=== PATIENT | female | born 1945 | race Caucasian/White ===

== ENCOUNTER → 2019-12-09 | Outpatient (CLI) | payer OTHER ==
[~2019-12-09] MED LIST: CALCIUM500 MG PO; CO Q-10 100 MG1 EACH PO; FLEXERIL PO; FLONASE 0.05%50 MCG NASAL; GARLIC1 EACH PO; LIPITOR40 MG PO; MECLIZINE HCL25 M1 PO; SUPER THERAVIT1 EACH PO; SYNTHROID50 MCG PO; XANAX1 MG PO; ZOLOFT100 MG PO
== END ==
LOC: SJCVC 14:35
PROVIDERS: ATTEND Internal Medicine
DX: R00.1 Bradycardia, unspecified (principal); I25.10 Atherosclerotic heart disease of native coronary artery without angina pectoris; E78.5 Hyperlipidemia, unspecified; E03.9 Hypothyroidism, unspecified; Z79.899 Other long term (current) drug therapy; Z82.49 Family history of ischemic heart disease and other diseases of the circulatory system; Z87.891 Personal history of nicotine dependence

== ENCOUNTER → 2019-12-17 | Outpatient (CLI) | payer OTHER | LOC: SJCVCIMAG 09:14 | PROVIDERS: ATTEND Internal Medicine | DX: I49.1 Atrial premature depolarization (principal); I49.3 Ventricular premature depolarization; I25.10 Atherosclerotic heart disease of native coronary artery without angina pectoris; E78.5 Hyperlipidemia, unspecified ==

== ENCOUNTER → 2019-12-19 | Outpatient (CLI) | payer OTHER | LOC: SJCVC 09:01 | PROVIDERS: ATTEND Internal Medicine | DX: I25.10 Atherosclerotic heart disease of native coronary artery without angina pectoris (principal); E78.5 Hyperlipidemia, unspecified; E03.9 Hypothyroidism, unspecified; Z79.899 Other long term (current) drug therapy ==

== ENCOUNTER → 2019-12-24 | Outpatient (CLI) | payer OTHER ==
[~2019-12-24] VITALS: Ht 172.7 cm; Wt 70.3 kg
[2019-12-24 07:03] VITALS: BP 123/68
--- NOTE | 2019-12-24 09:25 | CATHLAB ---
[facility] [place] [address] INVASIVE PROCEDURE REPORT Name: ED RETANA Room #: REG [facility]#: [id number] Admission: 12/24/19 Attend Phys: Khadar Delatorre MD, Discharge: Date of : 47 Report #: [id number] THIS REPORT FOR: cc: Michael Quintana MD, Kirk D. MD Lundgren, Craig H. MD [facility] ~ APPROVED REPORT Study performed: 12/24/2019 07:32:40 Patient Details The patient is a 74 year-old female Event Personnel Khadar Delatorre Advertising Columnist, Jade Martini RN RN, Lele Young RTR Scrub, Tyrese Kim RTR Monitor Procedures Performed Art Access - R femoral artery* Left Heart Cath w/or w/o Coronaries [id number] [facility] [address] Initial Mod Sed Same Phys/QHP Gr5y [id number] 55016 Mod Sed Same Phys/QHP Ea 775498 Hemostasis w/ Mynx Indication Chest pain Procedure Narrative The patient was brought electively to the Cardiac Catheterization Laboratory and was prepped and draped in a sterile manner. The Right Groin^ was infiltrated with Bupivacaine subcutaneous anesthesia. A PINNACLE 6FR Sheath #[id number] sheath was inserted into the RFA^. Coronary angiography was performed using coronary diagnostic catheters. The right coronary system was accessed and visualized with a JR4 catheter. The left coronary system was accessed and visualized with a JL4 catheter. The left ventricle was accessed and visualized with a PIGTAIL catheter. Left ventriculogram was performed in RAPHAEL projection. Closure device was deployed with a 6 Fr MYNXGRIP 6/7F #[id number]. Hemostasis was obtained with manual pressure following sheath removal without any complications. The patient tolerated the procedure well and there were no complications associated with the procedure. There was no hematoma. Intraoperative Conscious Sedation Sedation start time: 807 Case end Time: 858 [facility] [place] [address] INVASIVE PROCEDURE REPORT Name: ED RETANA EVIE Room #: REG [facility]#: [id number] Admission: 12/24/19 Attend Phys: Khadar Delatorre, Discharge: Date of : 47 Report #: [id number] Fentanyl 100 mcg Versed 4 mg Fluoro Time: 2.24 minutes Dose: DAP 2871.60 cGycm2 368 mGy Contrast Type and Amount: Omnipaque 135 ml Coronary Angiography The patient's coronary anatomy is right dominant. Diagnostic Cath Left Main Normal left main LAD Complex 85% calcific stenosis involving the proximal LAD extending into a large bifurcating diagonal branch The LAD exhibited a long variable 75 to 80% mid vessel stenosis Diagonal 1 Extension of the proximal LAD stenosis into the proximal diagonal branch (85%) Collaterals from the diagonal artery are to the distal right coronary Circumflex Small, nondominant circumflex Right Coronary Densely calcified and proximally occluded right coronary with extensive [id number]-js-[id number] collateralization R PDA Moderately large posterior descending without significant disease. RPLV Large posterior lateral branch with mild plaquing. Filling of the posterior descending occurs from retrograde filling from the posterior lateral system through large diagonal to PL branch collaterals Left Ventriculography The left ventricle is normal in size with normal contractility. The left ventricular ejection fraction is estimated to be 60%. Left ventricular wall motion abnormalities are not present. There is no mitral insufficiency. Hemodynamics The aortic pressure is 160/58 mmHg with a mean of 102 mmHg. The left ventricular pressure is 141/7 mmHg with a mean of mmHg. The left ventricular end diastolic pressure is 16 mmHg. Conclusion 1. Normal global and regional left ventricular systolic function 2. Normal left main 3. Complex, calcified proximal LAD disease extending into a large [facility] [address] [place] [address] INVASIVE PROCEDURE REPORT Name: ED RETANA Room #: REG CL [facility]#: [id number] Admission: 12/24/19 Attend Phys: Khadar Delatorre, Discharge: Date of : 47 Report #: [id number] diagonal branch 4. Severe mid LAD disease 5. Very small, nondominant circumflex 6. Dominant right coronary occluded proximally with extensive left to right collateralization Recommendations CABG <ELECTRONICALLY SIGNED> By: Khadar Delatorre MD, [facility] 12/24/19923 3 3 Khadar Delatorre MD, [facility] /INF
== END | disposition home or self-care (01) ==
LOC: CATH 06:43
PROVIDERS: ATTEND Internal Medicine
DX: R07.9 Chest pain, unspecified (principal); I25.10 Atherosclerotic heart disease of native coronary artery without angina pectoris; E78.5 Hyperlipidemia, unspecified; E03.9 Hypothyroidism, unspecified; F41.9 Anxiety disorder, unspecified; M19.90 Unspecified osteoarthritis, unspecified site; Z98.890 Other specified postprocedural states; Z79.899 Other long term (current) drug therapy; Z88.8 Allergy status to other drugs, medicaments and biological substances

== ENCOUNTER → 2020-01-10 | Outpatient (CLI) | payer OTHER ==
[~2020-01-10] MED LIST changes: +BENADRYL25 MG PO; +FISH OIL 1,3601 EAC1 PO; +MAGNESIUM250 M1 PO; +SALONPAS PATCH1 EAC1 TOP; +TUMS300 MG PO
== END ==
LOC: SJCVCIMAG 01-03 08:29
PROVIDERS: ATTEND Surgery Vascular Surgery
DX: Z01.818 Encounter for other preprocedural examination (principal); I08.8 Other rheumatic multiple valve diseases; I65.23 Occlusion and stenosis of bilateral carotid arteries; I25.10 Atherosclerotic heart disease of native coronary artery without angina pectoris; E78.5 Hyperlipidemia, unspecified; R00.1 Bradycardia, unspecified; Z87.891 Personal history of nicotine dependence

== ENCOUNTER → 2020-01-17 | Outpatient (CLI) | payer OTHER ==
--- NOTE | 2020-01-17 13:30 | NUR ---
THIS HADOOP DEVELOPER WAS PAGED FROM [id number] BY MIGNON OF PRE-SURG. PATIENT WANTED OT SPEAK TO A SPEAK TO A HADOOP DEVELOPER. PATIENT FEELS A GREAT DEAL OF REGRET AND REMORSE OVER THE "SHOULD HAVES", "COULD HAVES" AND "WOULD HAVES", REGARDING HER 'S AT ANOTHER HOSPITAL. WE DID LIFE REVIEW AND TRIED TO PROCESS THROUGH SOME OF HER ISSUES.
--- NOTE | 2020-01-23 08:10 | HC ---
[facility] [place] [address] CONSULTATION Name: ED RETANA Room #: REG ELISABETH Figueroa.#: [id number] Admission: 01/17/20 Attend Phys: Lobito Rocha MD Discharge: Date of : 47 Report #: [id number] THIS REPORT FOR: cc: Michael Quintana MD, Kirk D. MD Lundgren, Craig H. MD [facility] ~ CC: Lobito Flores DATE OF SERVICE: 01/22/2020 REASON FOR CONSULTATION: Coronary artery disease. HISTORY OF PRESENT ILLNESS: The patient is a 74-year-old woman with dyslipidemia, strong family history of premature coronary artery disease and recently identified multivessel coronary artery disease for which bypass surgery is planned. She originally presented with lower back pain and had a CT scan of the thoracic and lumbar spine. This demonstrated extensive multivessel coronary artery calcification. The patient denies chest heaviness or pressure, although has had progressive exertional breathlessness. An outpatient stress study was markedly abnormal leading to coronary angiography demonstrating multivessel coronary artery disease. Her ejection fraction is normal. She is now admitted for surgical revascularization. No heart failure symptoms including orthopnea, paroxysmal nocturnal dyspnea, or lower extremity edema. No history of palpitations, near syncope or syncope. ALLERGIES: SHE IS ALLERGIC TO CIPRO, CODEINE, MACROBID, BACTRIM AND CLONAZEPAM. MEDICATIONS: Include alprazolam 1 mg 4 times a day, atorvastatin 40 mg daily, Flexeril 10 mg 3 times a day as needed, Flonase 2 puffs each nostril daily, levothyroxine 50 mcg daily, sertraline 150 mg daily. PAST MEDICAL HISTORY: Medical records have been reviewed and include a history of chronic cystitis, degenerative disk disease in the lumbar region, dyslipidemia, hypothyroidism, on replacement, history of major depression, appendectomy, carpal tunnel release, cholecystectomy in 1983 and skin cancer excision. SOCIAL HISTORY: She is a former smoker, quit in 2002 after a 18-lmlk-zmui smoking history, nondrinker. FAMILY HISTORY: Mother had a heart attack at 61. Sister had a stroke following [facility] [address] [place] [address] CONSULTATION Name: RETANAED EVIE Room #: REG [facility]#: [id number] Admission: 01/17/20 Attend Phys: Lobito Rocha MD Discharge: Date of : 47 Report #: [id number] valve repair. Another sister had bypass surgery at the age of 58. REVIEW OF SYSTEMS: All systems negative except as that noted above. PHYSICAL EXAMINATION: GENERAL: A pleasant woman in no distress. VITAL SIGNS: Blood pressure is 108/70, heart rate of 54 and regular, respirations unlabored at 18, 155 pounds, 5 feet 8 inches tall. HEENT: There are neither xanthelasma, subcutaneous xanthomata, oral mucosal or digital cyanosis or kyphoscoliosis present. CHEST: Clear to auscultation and percussion. CARDIAC: Regular rate and rhythm with normal S1, S2. No murmurs or rubs. ABDOMEN: Soft and nontender. EXTREMITIES: Without cyanosis, clubbing or edema. Radial pulses are 2+. NEUROLOGIC: She is alert with a nonfocal exam. LABORATORY DATA: Total cholesterol 203, HDL 66, LDL 119, and triglycerides 98. EKG, sinus bradycardia, otherwise normal. Carotid duplex, moderate bilateral plaquing (less than 40% stenoses) Echocardiogram: Normal ejection fraction, mild aortic leaflet calcification without stenosis or insufficiency. Mild mitral regurgitation. IMPRESSION: 1. Progressive angina. 2. Severe multivessel coronary artery disease. 3. Dyslipidemia. 4. Anxiety disorder RECOMMENDATIONS: 1. Continued efforts towards aggressive risk factor modification. 2. Anticipate coronary artery bypass grafting. 3. Careful use of beta blockade, given her history of bradycardia. I will follow along with you. Thank you for asking me to participate in her care. <ELECTRONICALLY SIGNED> By: Khadar Delatorre MD, [facility] 01/23/20 0810 1704 190 Khadar Delatorre MD, FACC /nt
== END ==
LOC: LAB 12:24
PROVIDERS: ATTEND Surgery Vascular Surgery
DX: Z01.812 Encounter for preprocedural laboratory examination (principal); Z20.828 Contact with and (suspected) exposure to other viral communicable diseases

== ENCOUNTER 2020-01-23 06:05 | Inpatient (IN) | payer OTHER ==
[2020-01-17 12:09] LABS: APTT 25.8 Seconds (24.5-32.8); PROTIME 10.1 Seconds (9.3-11.4)
[2020-01-17 12:10] LABS: BASOPHILS 0.4 % (0.0-2.0); EOSINOPHILS 1.5 % (0.0-3.0); HEMOGLOBIN 13.2 gm/dL (12.0-15.0); LYMPHOCYTES 20.9 % (24.0-44.0); MCH 32.1 pg (26.0-34.0); MCHC 33.9 g/dL (28.0-37.0); MCV 94.8 fL (80.0-100.0); MONOCYTES 7.1 % (1.0-8.0); POLYS 70.1 % (36.0-66.0); RBC 4.12 mil/uL (4.20-5.00); RDW 13.6 % (10.5-14.5); URINE BILIRUBIN NEGATIVE (Negative); URINE BLOOD NEGATIVE (Negative); URINE CLARITY CLEAR; URINE COLOR YELLOW; URINE GLUCOSE-RANDOM* NEGATIVE (Negative); URINE KETONES NEGATIVE (Negative); URINE LEUKOCYTES-REFLEX NEGATIVE (Negative); URINE NITRITE-REFLEX NEGATIVE (Negative); URINE PROTEIN (DIPSTICK) NEGATIVE (Negative); URINE UROBILINOGEN 0.2 E.U./dl (0.2-1.0); WBC 5.6 thou/uL (4.0-11.0)
[2020-01-17 12:13] LABS: CALCIUM 8.8 mg/dL (8.5-10.1); CREATININE 0.7 mg/dL (0.6-1.0); POTASSIUM 4.4 mmol/L (3.5-5.1); TOTAL BILIRUBIN 0.6 mg/dL (0.2-1.0); TOTAL PROTEIN 6.8 g/dL (6.4-8.2)
[2020-01-17 12:49] LABS: LARGE PLATELETS OCCASIONAL; PLATELET COUNT 152 thou/uL (150-400)
--- NOTE | 2020-01-17 13:11 | EKG ---
[facility] [place] [address] ELECTROCARDIOGRAM REPORT Name: ED RETANA Room #: PRE IN M.R.#: [id number] Admission: Attend Phys: Lobito Rocha MD Discharge: Date of : 47 Report #: [id number] THIS REPORT FOR: cc: Michael Quintana MD, Kirk D. 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
[2020-01-18 00:06] LABS: GLYCOHEMOGLOBIN (HGB A1C) 5.3 % (4.8-5.6)
[2020-01-23] VITALS (10 sets, daily range): BP systolic 83–136; BP diastolic 55–75
[~2020-01-23] VITALS: Ht 172.7 cm; Wt 73.0 kg
[2020-01-23 11:54] LABS: HEMATOCRIT 23.4 % (37.0-47.0); MCH 32.2 pg (26.0-34.0); MCHC 33.7 g/dL (28.0-37.0); MCV 95.4 fL (80.0-100.0); RBC 2.45 mil/uL (4.20-5.00); RDW 13.7 % (10.5-14.5); WBC 7.8 thou/uL (4.0-11.0)
[2020-01-23 11:58] LABS: HEMOGLOBIN 7.9 gm/dL (12.0-15.0)
[2020-01-23 12:56] LABS: POC BE 1 mmol/L (-2.0 to +3.0); POC CA IONIZED 4.4 mg/dL (4.5-5.3); POC GLUCOSE 135 mg/dL (70-99); POC HCO3 25.8 mmol/L (22.0-26.0); POC HEMOGLOBIN 8.8 g/dL (12.0-15.0); POC POTASSIUM 4.8 mmol/L (3.5-5.1); POC SODIUM 139 mmol/L (136-145); POC pCO2 43.9 mmHg (35.0-45.0); POC pH 7.378 (7.360-7.450)
[2020-01-23 12:56] LABS: POC BE 2 mmol/L (-2.0 to +3.0); POC GLUCOSE 107 mg/dL (70-99); POC HCO3 27.8 mmol/L (22.0-26.0); POC HEMOGLOBIN 11.9 g/dL (12.0-15.0); POC SODIUM 138 mmol/L (136-145); POC pCO2 53.2 mmHg (35.0-45.0); POC pH 7.327 (7.360-7.450)
[2020-01-23 12:56] LABS: POC BE 1 mmol/L (-2.0 to +3.0); POC CA IONIZED 4.5 mg/dL (4.5-5.3); POC GLUCOSE 118 mg/dL (70-99); POC HCO3 25.4 mmol/L (22.0-26.0); POC HEMOGLOBIN 9.2 g/dL (12.0-15.0); POC POTASSIUM 4.6 mmol/L (3.5-5.1); POC SODIUM 137 mmol/L (136-145); POC pCO2 40.9 mmHg (35.0-45.0); POC pH 7.401 (7.360-7.450)
[2020-01-23 12:56] LABS: POC BE 0 mmol/L (-2.0 to +3.0); POC CA IONIZED 7.9 mg/dL (4.5-5.3); POC GLUCOSE 139 mg/dL (70-99); POC HCO3 25.5 mmol/L (22.0-26.0); POC HEMOGLOBIN 7.8 g/dL (12.0-15.0); POC POTASSIUM 4.7 mmol/L (3.5-5.1); POC SODIUM 135 mmol/L (136-145); POC pCO2 46.5 mmHg (35.0-45.0); POC pH 7.347 (7.360-7.450)
[2020-01-23 12:56] LABS: POC BE -2 mmol/L (-2.0 to +3.0); POC CA IONIZED 5.2 mg/dL (4.5-5.3); POC GLUCOSE 132 mg/dL (70-99); POC HEMOGLOBIN 7.1 g/dL (12.0-15.0); POC POTASSIUM 4.1 mmol/L (3.5-5.1); POC SODIUM 137 mmol/L (136-145); POC pH 7.433 (7.360-7.450)
[2020-01-23 12:56] LABS: POC BE 1 mmol/L (-2.0 to +3.0); POC CA IONIZED 4.3 mg/dL (4.5-5.3); POC GLUCOSE 99 mg/dL (70-99); POC HCO3 25.3 mmol/L (22.0-26.0); POC HEMOGLOBIN 9.9 g/dL (12.0-15.0); POC POTASSIUM 4.7 mmol/L (3.5-5.1); POC SODIUM 136 mmol/L (136-145); POC pCO2 40.8 mmHg (35.0-45.0); POC pH 7.401 (7.360-7.450)
[2020-01-23 12:56] LABS: POC BE 3 mmol/L (-2.0 to +3.0); POC CA IONIZED 4.8 mg/dL (4.5-5.3); POC GLUCOSE 93 mg/dL (70-99); POC HEMOGLOBIN 12.2 g/dL (12.0-15.0); POC POTASSIUM 3.7 mmol/L (3.5-5.1); POC SODIUM 137 mmol/L (136-145); POC pCO2 34.8 mmHg (35.0-45.0); POC pH 7.483 (7.360-7.450)
[2020-01-23 12:57] LABS: POC BE -2 mmol/L (-2.0 to +3.0); POC CA IONIZED 4.9 mg/dL (4.5-5.3); POC GLUCOSE 104 mg/dL (70-99); POC HCO3 22.6 mmol/L (22.0-26.0); POC HEMOGLOBIN 8.5 g/dL (12.0-15.0); POC POTASSIUM 3.8 mmol/L (3.5-5.1); POC SODIUM 140 mmol/L (136-145); POC pCO2 34.4 mmHg (35.0-45.0); POC pH 7.425 (7.360-7.450)
[2020-01-23 12:58] LABS: APTT 30.1 Seconds (24.5-32.8); PROTIME 14.4 Seconds (9.3-11.4)
[2020-01-23 12:59] LABS: INR 1.4
[2020-01-23 13:22] LABS: BE(vivo) -2.2 mmol/L (-2 to +3); PCO2 35.5 mmHg (35.0-45.0); PO2 207.1 mmHg (80.0-100.0); sO2 99.4 % (92.0-98.0)
[2020-01-23 13:44] LABS: HEMATOCRIT 27.7 % (37.0-47.0); HEMOGLOBIN 9.5 gm/dL (12.0-15.0); MCH 32.4 pg (26.0-34.0); MCHC 34.3 g/dL (28.0-37.0); MCV 94.6 fL (80.0-100.0); RBC 2.93 mil/uL (4.20-5.00); RDW 13.4 % (10.5-14.5); WBC 8.7 thou/uL (4.0-11.0)
[2020-01-23 13:59] LABS: CALCIUM 8.2 mg/dL (8.5-10.1); CREATININE 0.7 mg/dL (0.6-1.0); MAGNESIUM 2.5 mg/dL (1.8-2.4)
[2020-01-23 14:11] LABS: APTT 28.1 Seconds (24.5-32.8); INR 1.2; PROTIME 12.5 Seconds (9.3-11.4)
--- NOTE | 2020-01-23 14:46 | NUR ---
ASSESSMENTS AND INTERVENTIONS DOCCUMENTED. PATIENT ARRIVED TO ICU AROUND 1307. PATIENT ACCOMPANIED BY ANESTHESIOLOGIST, DINING SERVICE INSPECTOR, OPERATIONS AND MAINTENANCE MANAGER AND GRANT REDMAN AND DR. GUILLEN. PATIENT SETTLED, ISSUES WITH PRERNA GOODWIN AND FEROZ READING ON MONITOR. DR GUILLEN AT BEDSIDE ADJUSTING IT NECESSARY. WAVEFORM IMPROVED, BUT 4 RED BOXES REMIAN . PATIENT REMIANS STABLE ON LIGHT SEDATION. AROUND 1420, RANI SILVA AT BEDSIDE. SHIRA UPDATED ABOUT POC, PROCEDURES, WHAT TO EXPECT. ICU VISTIATION RULES EXPLAINED TO HIM WELL. SON, SHIRA EXPRESSING UNDERSTANDING. RN WILL CONTINUE TO MONITOR PATIENT.
[2020-01-23 17:44] LABS: BE(vivo) -5.9 mmol/L (-2 to +3); HCO3 19.5 mmol/L (22.0-26.0); PCO2 38.1 mmHg (35.0-45.0)
[2020-01-23 17:45] LABS: pH 7.328 (7.360-7.450)
--- NOTE | 2020-01-23 19:00 | NUR ---
ASSUMED CARE OF PT. REMAINS INTUBATED AND LIGHTLY SEDATED WITH PRECEDEX GTT. CHEST TUBES AND ART LINE INTACT. SINUS RHYTHM. WILL ATTEMPT TO DFO WEANING TRIALS AGAIN.
--- NOTE | 2020-01-23 20:00 | NUR ---
DR GUILLEN HERE. LEFT ORDERS TO GIVEN ALBUMIN FOR LOW BP.,
[2020-01-23 20:27] LABS: BE(vivo) -4.1 mmol/L (-2 to +3); PCO2 38.3 mmHg (35.0-45.0); PO2 180.1 mmHg (80.0-100.0); pH 7.356 (7.360-7.450); sO2 99.2 % (92.0-98.0)
--- NOTE | 2020-01-23 20:45 | NUR ---
PT PASSED WEANING TRIALS. EXTUBATED AND PLACED ON 50 % FACE SHIELD. PT ANGRY MADDER THAN A WET HORNET. STATED SHE WOULD NEVER COME TO [facility] AGAIN. STATED THAT ET TUBE WAS STUCK BETWEEN HER TEETH AND WE TIED HER UP AND WOULD NOT TRY TO LISTEN TO HER FOR 12 HOURS TO TAKE IT OUT. WANTS ME TO CALL HER SON TO GET HERE OUT OF HERE. MUCH REASSURANCE GIVEN . REMAINS ON PRECEDEX GTT AT 0.2 MCG. WILL CONT TO MONITOR
--- NOTE | 2020-01-23 22:00 | NUR ---
PT MUCH CALMER NOW. FENTANYL GIVEN FOR CHEST INCISIONAL PAIN. VSS MOD AMT OF CHEST TUBE DRAINAGE. URINE OUTPUT ADEQ. DRESSINGS DRY AND INTACT.
[2020-01-24 05:29] LABS: HEMATOCRIT 25.6 % (37.0-47.0); HEMOGLOBIN 8.6 gm/dL (12.0-15.0); MCH 32.3 pg (26.0-34.0); MCHC 33.6 g/dL (28.0-37.0); MCV 96.1 fL (80.0-100.0); RBC 2.67 mil/uL (4.20-5.00); RDW 13.8 % (10.5-14.5); WBC 6.2 thou/uL (4.0-11.0)
[2020-01-24 05:33] LABS: CALCIUM 7.7 mg/dL (8.5-10.1); CREATININE 0.9 mg/dL (0.6-1.0); MAGNESIUM 2.4 mg/dL (1.8-2.4); POTASSIUM 4.3 mmol/L (3.5-5.1)
--- NOTE | 2020-01-24 05:35 | NUR ---
PT HAS BEEN WANTING HER XANAX ALL NIGHT. SHE NORMALLY TAKES 1 MG Q 6 HRS TEO NOTIFIED. XANAX 1 MG PO GIVEN PER ORDER DR VALDEZ. WILL CONT TO MONITOR.
--- NOTE | 2020-01-24 06:00 | NUR ---
PT AWAKE AND ALERT. BATHED. HAD A TOTAL OF 3 ALBUMIN TONIGHT. ART BP 90 TO 100 LUNGS CLEAR. UO ADEQ. MOD AMT CT DRAINAGE. REMAINS IN SINUS RHYTHM. CHEST AND LEFT LEG DRESSINGS DRY. AND INTACT. PULSES INTACT. WILL CONT TO MONITOR CLOSELY.
--- NOTE | 2020-01-24 07:00 | NUR ---
PT UP TO CARDIAC CHAIR LOWELL WELL.
--- NOTE | 2020-01-24 07:21 | EKG ---
[facility] [place] [address] ELECTROCARDIOGRAM REPORT Name: ED RETANA Room #: 251-P ADM IN M.R.#: [id number] Admission: 01/23/20 Attend Phys: Lobito Rocha MD Discharge: Date of : 47 Report #: [id number] THIS REPORT FOR: cc: Michael Quintana MD, Kirk D. 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 CHOUDHURY : 1945 Requested By: Arturo Loving Order Number: [id number] MD: Heriberto Hand Measurements Intervals [place] Rate: 63 P: 72 IA: 147 QRS: 64 QRSD: 106 T: 56 QT: 501 QTc: 513 Interpretive Statements Sinus rhythm Abnormal R-wave progression, early transition Compared to ECG 01/17/2020 11:50:16 No significant changes Electronically Signed On 01-24-2020 7:21:28 CDT by Heriberto Hand [email or web address] <ELECTRONICALLY SIGNED> By: Heriberto Hand MD, [facility] 01/24/20 0721 1359 1359 Heriberto Hand MD, [facility] /EPI
--- NOTE | 2020-01-24 07:30 | EKG ---
[facility] [place] [address] ELECTROCARDIOGRAM REPORT Name: DE RETANA Room #: 251-P ADM IN M.R.#: [id number] Admission: 01/23/20 Attend Phys: Lobito Rocah MD Discharge: Date of : 47 Report #: [id number] THIS REPORT FOR: cc: Michael Quintana MD, Kirk D. 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
--- NOTE | 2020-01-24 11:19 | NUR ---
RD received consult for diet education. Pt s/p CABG. Will address any nutrition education needs once stabilized and transferred out of ICU
--- NOTE | 2020-01-24 16:38 | NUR ---
INITIAL ASSESSMENT: Received consult for discharge planning. SW reviewed chart and spoke with nursing. Pt is POD #1 CABG x 3. Pt is in ICU. Pt on 2L of O2. Therapy ordered to evaluate pt for discharge needs. SW met with pt at bedside. Introduced role of SW. Pt is alert/orientated x 4. Pt reports she lives at home alone. Her about a year ago. Prior to admission, pt was independent with ADLs. No use of DME. No hx of services or post-acute placement. Pt's PCP is Dr. Michael Quintana. SW discussed post-acute needs. Pt states she will not have any discharge needs, and she cannot afford any services or DME. Pt has Medicare primary and states she is aware of her 20% copay. She does not have a secondary insurance. Pt will be staying with her sister upon discharge. Pt states she would like to discuss her hospital bill with the business office prior to discharge if possible. No weekend discharge planned. TRACY is following to assist as needed with discharge planning.
--- NOTE | 2020-01-24 18:43 | NUR ---
POD 1 PT UP TO CHAIR X2 TODAY. TOLERATED WELL. VERY ANXIOUS THROUGHOUT THE DAY. HOME DOSE OF XANAX RESTARTED ORDERED. PT'S SON AT BEDSIDE THIS AM AND UPDATED. MEDISTINAL CT DISCONTINUED THIS AFTERNOON. PT COMPLAINING OF NAUSEA/PAIN. GIVEN ZOFRAN AND PAIN MEDICATION ORDERED. STARTED ON IV TYLENOL THIS AFTERNOON. ENCOURAGED USE OF I.S. HOURLY PT ACHIEVING 1000ML. WEANING LEVOPHED THROUGHOUT THE DAY. WEANED OFF AT 1800 AND BP STABLE. PROGRESSING TOWARDS GOALS PER PLAN OF CARE.
[2020-01-25 05:07] LABS: HEMATOCRIT 23.1 % (37.0-47.0); HEMOGLOBIN 7.8 gm/dL (12.0-15.0); MCH 32.1 pg (26.0-34.0); MCHC 33.6 g/dL (28.0-37.0); MCV 95.4 fL (80.0-100.0); RBC 2.42 mil/uL (4.20-5.00); RDW 13.6 % (10.5-14.5); WBC 6.6 thou/uL (4.0-11.0)
[2020-01-25 05:18] LABS: CALCIUM 7.5 mg/dL (8.5-10.1); CREATININE 0.6 mg/dL (0.6-1.0); POTASSIUM 3.9 mmol/L (3.5-5.1)
--- NOTE | 2020-01-25 06:39 | NUR ---
PT UP TO CHAIR THIS AM. PT ANXIOUS AND COMPLAINING OF NAUSEA. PT WAS GIVEN XANAX AND ZOFRAN THIS AM. PT VITAL SIGNGS STABLE THROUGHOUT THE NIGHT. URINE OUTPUT IS ADEQUATE. PT HAVING NON PRODUCTIVE COUGH. CONTINUE TO MONITOR.
[2020-01-25 08:29] VITALS: BP 86/56
--- NOTE | 2020-01-25 12:44 | NUR ---
ASSUMED CARE @ 0700 01/25/20, PT ASSESSMENTS AND VSS COMPLETE PER ICU PROTOCOL. DR GUILLEN HERE TO ROUND THE AM, PLEURAL CHEST TUBE D'CD, AND PACER WIRES DC'D. ART LINE AND CONDE CATH DC'D PER ORDERS. PT ABLE TO VOID X 1 SINCE REMOVAL. CCU ORDERS RECIEVED.
[2020-01-25 15:34] VITALS: BP 102/47
--- NOTE | 2020-01-25 20:45 | NUR ---
ASSUMMED PT CARE AT APPROXIMATELY 1610. PT A&O X4 AND FORGETFUL AT TIMES. ASSESSMENT CHARTED. FALL PRECAUTIONS IN PLACE. PT DENIES HAVING CHEST PAIN. PT DENIES HAVING SOB. PT DENIES HAVING ACUTE PAIN. PT STATED SHE HAD NAUSEA. PT RECEIVED ANTI-EMETIC. PT STATED ANTI-EMTIC HELPED RELIEVE NAUSEA. INFORMED DR. GUILLEN OF PT'S PICCO DRESSING BLINKING ORANGE. DR. GUILLEN STATED UNDERSTANDING C NO NEW ORDERS. INFORMED DR. GUILLEN OF PT'S RETAINING URINE FROM BLADDER SCAN. NEW ORDERS RECEIVED. INFORMED DIRECTOR OF REAL ESTATE RN OF NEW ORDERS. DIRECTOR OF REAL ESTATE RN STATED UNDERSTANDING C NO QUESTIONS. PT ANXIOUS. ANTI-ANTIETY MED GIVEN BEFORE SHIFT CHANGE. INFORMED DIRECTOR OF REAL ESTATE RN. DIRECTOR OF REAL ESTATE RN STATED UNDERSTANDIING. VITAL SIGNS STABLE. BLOOD SUGARS STABLE.
[2020-01-25 20:51] VITALS: BP 107/58
--- NOTE | 2020-01-26 03:19 | NUR ---
PATIENT ALERT AND ORIENTED X4 WITH ANXIETY. STATING THAT SHE IS AFRAID THAT SHE WILL BE MURDERED IN HER SLEEP. AM NURSE RECEIVED ORDER TO REINSERT CONDE LATE IN THE SHIFT. THIS NURSE PASSED MEDS BEFORE REINSERTING. HOWEVER, PATIENT CALLED HER SON COMPLAINING THAT SHE HAD BEEN FORGOTTEN AND THE CONDE WAS OUT. ANOTHER NURSE TOOK THAT PHONE CALL AND ASSURRED HIM THAT THIS WOULD BE DONE UMA PER PRIORITY WHICH HE UNDERSTOOD AND RELAYED THIS MESSAGE TO HIS MOTHER. THIS NURSE AND GOLF COURSE KEEPER INSERTED W/O COMPLICATION RECEIVING APPROX. 325ML RIGHT AWAY. NIGHT MEDICATIONS WERE REVIEWED WITH PATIENT. FLUID RESTRICTION FOLLOWED. NO C/O NAUSEA. PATIENT CALMED DOWN, APOLOGIZED FOR HER BEHAVIOR AND WENT TO SLEEP SHORTLY AFTER MEDS AND CONDE. AT BEGINNING OF SHIFT PATIENT WAS MEDICATED FOR ANXIETY BY AM NURSE, HOWEVER, NO GOOD RESULTS. WILL MONITOR.
[2020-01-26 04:23] LABS: ABSOLUTE NEUTROPHILS 4.8 thou/uL (1.4-8.2); BASOPHILS 0.3 % (0.0-2.0); EOSINOPHILS 1.1 % (0.0-3.0); HEMATOCRIT 22.2 % (37.0-47.0); HEMOGLOBIN 7.6 gm/dL (12.0-15.0); MCH 32.6 pg (26.0-34.0); MCHC 34.3 g/dL (28.0-37.0); MCV 95.1 fL (80.0-100.0); MONOCYTES 8.4 % (1.0-8.0); PLATELET COUNT 87 thou/uL (150-400); POLYS 77.2 % (36.0-66.0); RBC 2.34 mil/uL (4.20-5.00); RDW 13.8 % (10.5-14.5); WBC 6.2 thou/uL (4.0-11.0)
[2020-01-26 04:25] LABS: CALCIUM 8.2 mg/dL (8.5-10.1); CREATININE 0.7 mg/dL (0.6-1.0); MAGNESIUM 2.1 mg/dL (1.8-2.4); PHOSPHORUS 1.1 mg/dL (2.5-4.9); POTASSIUM 4.5 mmol/L (3.5-5.1)
[2020-01-26 04:45] VITALS: BP 116/71
[2020-01-26 08:10] VITALS: BP 113/69
[2020-01-26 12:05] VITALS: BP 105/59
--- NOTE | 2020-01-26 16:58 | O ---
[facility] [place] [address] OPERATIVE REPORT Name: ED RETANA Room #: 214-P ADM IN M.R.#: [id number] Admission: 01/23/20 Attend Phys: Lobito Rocha MD Discharge: Date of : 47 Report #: [id number] THIS REPORT FOR: cc: Michael Quintana MD, Kirk D. MD Forman, John M. MD ~ CC: Lobito Quintana DATE OF SERVICE: 01/23/2020 PREOPERATIVE DIAGNOSIS: Coronary artery disease. POSTOPERATIVE DIAGNOSIS: Coronary artery disease. OPERATION: Coronary artery bypass x 3 including left internal mammary artery to left anterior descending artery, saphenous vein to diagonal and saphenous vein to posterolateral branch of the right coronary, endoscopic harvest left greater saphenous vein. SURGEON: Lobito Rocha MD SOILS ANALYST: FEROZ Palma. ANESTHESIA: General. INDICATIONS: The patient is a 74-year-old with ____ coronary artery disease. The patient has total occlusion of the right coronary artery and stenosis of the LAD and diagonal system. Circumflex is diminutive. There was a large diagonal that branches and collateralizes the posterolateral branch, which fills the distal right system. Left ventricular function is satisfactory. FINDINGS AND TECHNIQUE: After general anesthesia was established, saphenous vein was harvested using an endoscopic approach and prepared for use as a conduit. Endoscopic harvest was performed and vein was prepared for use as a conduit. Exposure was obtained through median sternotomy. Left internal mammary artery was harvested from chest wall. Pericardial well was made. Cannulation sutures were placed. Heparin was given. Aorta was cannulated. Right atrium was cannulated. Cardioplegia needle was positioned in the aortic root. Retrograde cardioplegic catheter was placed in coronary sinus. Cardiopulmonary bypass was established. The aorta was cross clamped. Antegrade and retrograde cardioplegia were given. Ice was poured in the pericardial well. The heart was stopped. [facility] [address] [place] [address] OPERATIVE REPORT Name: ED RETANA Room #: 214-P [facility] IN .R.#: [id number] Admission: 01/23/20 Attend Phys: Lobito Rocha MD Discharge: Date of : 47 Report #: [id number] During electromechanical arrest, the distal anastomoses were performed and end-to-side anastomosis was made between vein and the large posterolateral branch. Cold cardioplegia was given. Separate segment of vein was sewn in end-to-side fashion to the large first diagonal branch. Cold cardioplegia was given. Left internal mammary artery was sewn in end-to-side fashion to left anterior descending artery. Patency of this vessel was checked with the temperature technique and the Doppler. Cold cardioplegia was given. Two proximal anastomoses were performed. When these were complete, warm retrograde cardioplegia was given followed by warm continuous blood to the coronary sinus. When this infusion was complete, the cross clamp was removed, de-airing maneuvers were performed. The anastomoses were inspected and found to be satisfactory. As the patient warmed, nice cardiac activity resumed, chest tubes and pacing wires were placed, a marker was placed around the proximal anastomoses. When the patient was warmed, she was weaned from cardiopulmonary bypass. Venous cannula was removed. Protamine was given, the aortic cannula was removed. Flows were measured in the bypass grafts. When hemostasis was satisfactory, chest was irrigated with antibiotic solution and closed in the usual fashion. The patient was taken to the Intensive Care Unit in good condition having tolerated the procedure well. All counts reported as correct. <ELECTRONICALLY SIGNED> By: Lobito Rocha MD 01/26/20 1658 194 00 Lobito Rocha MD /nt
[2020-01-26 17:25] VITALS: BP 111/61
--- NOTE | 2020-01-26 20:15 | NUR ---
ASSUMED CARE OF PT AT SHIFT CHANGE. ASSESSMENTS CHARTED. MEDS GIVEN PER JUL. PT A&OX4, NO C/O PAIN. CONCERNED ABOUT CONDE AND WHEN TO DC. NAUSEA TREATED WITH IV MEDS WITH COMPLETE RELIEF. WALKED WITH OT. SAT IN CHAIR MOST OF DAY AND USED IS FREQUENTLY. WILL CONTINUE TO MONITOR.
[2020-01-26 20:22] VITALS: BP 110/63
--- NOTE | 2020-01-27 03:17 | NUR ---
ASSESSMENTS CHARTED, MEDS CHARTED GIVEN. PATIENT TRANSFERED FROM CHAIR TO BED AT START OF SHIFT. GETTING IS UP TO 1000. PATIENT STILL GRIEVING HER HUSBANDS . ANXIOUS. DENIED PAIN. FALL PRECAUTIONS IN PLACE DURING SHIFT.
[2020-01-27 04:33] VITALS: BP 98/66
[2020-01-27 05:16] LABS: HEMATOCRIT 22.6 % (37.0-47.0); HEMOGLOBIN 7.6 gm/dL (12.0-15.0); MCH 32.3 pg (26.0-34.0); MCHC 33.7 g/dL (28.0-37.0); MCV 95.9 fL (80.0-100.0); RBC 2.36 mil/uL (4.20-5.00); RDW 13.9 % (10.5-14.5); WBC 5.8 thou/uL (4.0-11.0)
[2020-01-27 05:31] LABS: CREATININE 0.7 mg/dL (0.6-1.0); POTASSIUM 4.3 mmol/L (3.5-5.1)
--- NOTE | 2020-01-27 08:14 | EKG ---
[facility] [place] [address] ELECTROCARDIOGRAM REPORT Name: ED RETANA Room #: 214-P ADM IN M.R.#: [id number] Admission: 01/23/20 Attend Phys: Lobito Rocha MD Discharge: Date of : 47 Report #: [id number] THIS REPORT FOR: cc: Michael Quintana MD, Kirk D. MD Couchonnal, Luis F. MD ~ THIS REPORT FOR: //name// 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
[2020-01-27 08:45] VITALS: BP 108/61
[2020-01-27 11:10] VITALS: BP 116/113
[2020-01-27 14:20] LABS: % SATURATION 10 % (20-39); IRON 18 ug/dL (50-170); TIBC 180 ug/dL (250-450)
[2020-01-27 16:00] VITALS: BP 97/61
--- NOTE | 2020-01-27 17:08 | NUR ---
ASSESSMENTS CHARTED - MEDS PER JUL - PT REUFUSED MIRILAX THIS AM. LOWELL DIET AND FLIUDS. UP IN THE CHAIR FOR MOST OF THE DAY. PAT SHOWERED THIS AM. [employer] DRESSING CHANGED AND SITES TO L LEG OPEN TO AIR, BANDAIDS ON CT SITES TO ABDO. PT AMBULATED IN THE HALLS WITH PHYS THERAPY. ACCUCHECKS CHARTED - NO COVERAGE REQUIRE. PATIENT GIVEN XANEX X 2 DOSES THIS SHIFT FOR ANXIOUSNESS. CONDE OUT THIS AM AT APPROX 1115. PT HAS HAD ONE INCONTINENT EPISODE SINCE CONDE REMOVED - STATED WAS ASLEEP IN CHAIR AND COULD NOT GET UP FAST ENOUGH. BRIEF INSITU PER PATIENT REQUEST.
[2020-01-27 20:45] VITALS: BP 103/60
--- NOTE | 2020-01-28 04:17 | NUR ---
Assumed pt care at 1900. Pt is alert and oriented and sitting on chair. No sign of distress noted. Pt is fussy about her urine output and about been consipated. Pt insist on talking to Dr Ramirez about seeing a urologist. Fall precaution in place. Ambulate patient x1 in the hallway. Pt expresses she was tried after walking few steps. Assesment completed and documented. Fall precaution in place. Scheduled meds administered to pt. Tolerated PO intake. No acute events overnight. No further needs at this time. Continue to monitor.
[2020-01-28 04:45] VITALS: BP 106/60
[2020-01-28 07:30] VITALS: BP 106/55
[2020-01-28 09:12] LABS: HEMATOCRIT 24.5 % (37.0-47.0); HEMOGLOBIN 8.1 gm/dL (12.0-15.0); MCH 32.2 pg (26.0-34.0); MCHC 33.2 g/dL (28.0-37.0); MCV 96.7 fL (80.0-100.0); RBC 2.53 mil/uL (4.20-5.00); RDW 13.9 % (10.5-14.5); WBC 5.8 thou/uL (4.0-11.0)
[2020-01-28 09:21] LABS: CALCIUM 8.2 mg/dL (8.5-10.1); CREATININE 0.7 mg/dL (0.6-1.0); MAGNESIUM 1.9 mg/dL (1.8-2.4)
--- NOTE | 2020-01-28 11:23 | NUR ---
Followup for nutrition education needs and length of stay assessment s/p CABG. Voices eats very high fiber diet at home but doesn't plan on real restrictive diet. appetite slowly improving and would like to order from alternative menu. Asking for salt-not currently on a salt restriction, so can allow. Low nutrition risk
[2020-01-28 11:30] VITALS: BP 147/105
[2020-01-28 11:35] VITALS: BP 99/59
[2020-01-28 16:00] VITALS: BP 111/66
--- NOTE | 2020-01-28 16:30 | NUR ---
Assessment as charted - meds as per jul - pt given xanex x 2 doses for anxiousness and being fretful and constantling asking the same question over and over agian and questioning what staff is doing andstating she knows that we are not doing things correctly and the doctors would not be happy and that we have to call them about every thing she is questioning. alicia diet and fluids. up to the chair and ambulated in the halls. pt given lasix 20 mgs ivp as ordered - co's that she had to go to the bathroom so often - co's to Dr Rocha about this and bladder scan completed bladder with < 110 cc present - pt reassured that this was fine. pt also given pepcid as a precautionary measure as patient with co's of reflux yesterday - given cepacol lozeenger for co's of throat pain - stated she couldn't swollow pills given pudding to take them with stated that this helped. pt co's about sock size took next size and and pt cursed about how big they were. pt also threw binder across room, infromed her that this was not appropriate behaviour. incisions c/d/i. no co's of pain or nausea. pt resting in bed at the present time.
[2020-01-28 20:30] VITALS: BP 100/56
[2020-01-29 00:45] VITALS: BP 101/54
[2020-01-29 04:44] VITALS: BP 104/64
[2020-01-29 09:17] VITALS: BP 107/73
[2020-01-29 14:46] LABS: URINE BILIRUBIN NEGATIVE (Negative); URINE BLOOD 1+ (Negative); URINE CLARITY CLEAR; URINE COLOR YELLOW; URINE GLUCOSE-RANDOM* NEGATIVE (Negative); URINE KETONES NEGATIVE (Negative); URINE LEUKOCYTES-REFLEX NEGATIVE (Negative); URINE NITRITE-REFLEX NEGATIVE (Negative); URINE PROTEIN (DIPSTICK) NEGATIVE (Negative); URINE SPECIFIC GRAVITY <= 1.005 (1.005-1.035)
[2020-01-29 14:57] LABS: BACTERIA-REFLEX 1-9 Few /HPF (None Seen); CASTS None Seen /LPF (None Seen); CRYSTALS None Seen /LPF (None Seen); SQUAMOUS 0-3 Few /LPF (0-3); URINE RBC 0-2 Rare /HPF (0-2); URINE WBC-REFLEX None Seen /HPF (0-5)
[2020-01-29 15:54] VITALS: BP 120/82
--- NOTE | 2020-01-29 16:56 | NUR ---
FAXED REFERRAL TO [facility] WITH [facility] IN INTAKE SHE RECEIVED REFERRAL AND WILL ACCEPT. ANTICIPATE DC TOMORROW 01/29.
--- NOTE | 2020-01-29 17:11 | NUR ---
Met with patient she plans home in am with to her sister home [place] [id number] [address] Patient agreeable to and has no prefernce for an agency. Patients son retrieving bed side commode for patient for dc Dc planner intern faxing to agency.
--- NOTE | 2020-01-29 17:59 | NUR ---
PT ALERT AND ORIENTED. VERY ANXIOUS. PRN PAIN MED AND ANXIETY MED GIVEN WITH PARTIAL RELIEF. PLAN TO BE DISCHARGE IN AM. PROGRESSING WELL TOWARDS DISCHARGE GOAL.
[2020-01-29 20:32] VITALS: BP 103/58
[2020-01-30 03:21] VITALS: BP 111/64
--- NOTE | 2020-01-30 04:38 | NUR ---
PT ALERT AND ORIENTED. DENIES PAIN. VITALS STABLE OVERNIGHT. ANTICIPATE TO DC THIS AM. REFUSED SOME OF HER EVENING MEDICATIONS. REMAINS SR ON THE MONITOR.
[2020-01-30 07:45] VITALS: BP 119/54
[2020-01-30 12:00] VITALS: BP 112/75
[2020-01-30] MEDS ORDERED: FERREX 150 PLU1 EAC1 PO (12:38)
[2020-01-30] MEDS ORDERED: TOPROL XL25 MG PO (12:39)
[2020-01-30] MEDS ORDERED: FLOMAX0.4 MG PO (12:39)
[2020-01-30] MEDS ORDERED: ASPIR 8181 MG PO (12:40)
[2020-01-30 13:23] VITALS: BP 112/75
[2020-01-30 13:42] VITALS: BP 112/75
--- NOTE | 2020-01-30 14:05 | NUR ---
PT DISCHARGING TODAY TO HOME WITH [facility] FAXED DC ORDERS/SUMMARY SPOKE WITH [facility]OBO IN INTAKE THEY RECEIVED ORDERS AND WILL NOTIFY PT TIME OF VISITS.
--- NOTE | 2020-01-30 15:06 | NUR ---
ASSUMED CARE OF PT AT SHIFT CHANGE. ASSESSMENTS CHARTED. MEDS GIVEN PER JUL. PT A&OX4, C/O CHEST INCISION PAIN TREATED WITH PO MEDS. [employer] DRESSING WAS REMOVED SO PT COULD SHOWER. DRESSING WAS CDI, INCISION IS WELL APPROXIATED, WITH NO REDNESS OR DRAINAGE. DISCHARGE ORDERS AND INSTRUCTIONS COMPLETE. TELE AND IV DC'D. PT TAKEN OUT VIA WHEELCHAIR TO SON'S WAITING CAR.
== END 2020-01-30 14:49 | disposition home health service (06) | DRG 236 ==
LOC: TBA 06:05 → ICU 06:05 → PRE 08:21 → ICU 14:12 → 2N 01-25 15:28
PROVIDERS: Internal Medicine; Nurse Practitioner; Physician Assistant; ADMIT Surgery Vascular Surgery; ATTEND Surgery Vascular Surgery
PROC: 5A1221Z Performance of Cardiac Output, Continuous (ICD-10-PCS; principal; 2020-01-23)
PROC: 06BQ4ZZ Excision of Left Saphenous Vein, Percutaneous Endoscopic Approach (ICD-10-PCS; principal; 2020-01-23)
PROC: 021109W Bypass Coronary Artery, Two Arteries from Aorta with Autologous Venous Tissue, Open Approach (ICD-10-PCS; principal; 2020-01-23)
PROC: 30233R1 Transfusion of Nonautologous Platelets into Peripheral Vein, Percutaneous Approach (ICD-10-PCS; principal; 2020-01-23)
PROC: 02100Z9 Bypass Coronary Artery, One Artery from Left Internal Mammary, Open Approach (ICD-10-PCS; principal; 2020-01-23)
PROC: 05HY33Z Insertion of Infusion Device into Upper Vein, Percutaneous Approach (ICD-10-PCS; 2020-01-24)
DX: I25.10 Atherosclerotic heart disease of native coronary artery without angina pectoris (principal); J98.11 Atelectasis; E87.1 Hypo-osmolality and hyponatremia; D62 Acute posthemorrhagic anemia; E78.5 Hyperlipidemia, unspecified; I65.29 Occlusion and stenosis of unspecified carotid artery; E03.9 Hypothyroidism, unspecified; G89.29 Other chronic pain; M54.9 Dorsalgia, unspecified; F32.9 Major depressive disorder, single episode, unspecified; K21.9 Gastro-esophageal reflux disease without esophagitis; Z60.2 Problems related to living alone; M51.36 Other intervertebral disc degeneration, lumbar region; M17.0 Bilateral primary osteoarthritis of knee; D69.6 Thrombocytopenia, unspecified; R33.9 Retention of urine, unspecified; F41.1 Generalized anxiety disorder; E55.9 Vitamin D deficiency, unspecified; E78.00 Pure hypercholesterolemia, unspecified; Z79.82 Long term (current) use of aspirin; Z79.899 Other long term (current) drug therapy; Z88.1 Allergy status to other antibiotic agents; Z88.2 Allergy status to sulfonamides; Z88.8 Allergy status to other drugs, medicaments and biological substances; Z90.49 Acquired absence of other specified parts of digestive tract; Z87.891 Personal history of nicotine dependence
CPT/HCPCS: 10078; 10081; 47000; 47001; 47002; 47297; 48888; 50010; 50011; 50249; 50409; 50456; 50498; 50668; 51301; 52131; 52259; 52287; 52314; 53327; 53358; 54118; 55415; 56455; 56524; 56525; 56526; 56527; 56528; 56531; 56534; 56668; 56719; 56760; 56898; 57093; 57116; 57167; 62110; 62950; 65003; 65020; 65047; 65090; 65120; 65135; 83006

== ENCOUNTER → 2020-05-04 | Outpatient (CLI) | payer OTHER ==
[~2020-05-04] MED LIST changes: +ASPIR 8181 MG PO; +FERREX 150 PLU1 EAC1 PO; +FLOMAX0.4 MG PO; +TOPROL XL25 MG PO
== END ==
LOC: SJCVC 10:05
PROVIDERS: ATTEND Internal Medicine
DX: I25.810 Atherosclerosis of coronary artery bypass graft(s) without angina pectoris (principal); D64.9 Anemia, unspecified; E78.5 Hyperlipidemia, unspecified; E03.9 Hypothyroidism, unspecified; Z79.82 Long term (current) use of aspirin; Z79.899 Other long term (current) drug therapy; Z82.49 Family history of ischemic heart disease and other diseases of the circulatory system; Z95.1 Presence of aortocoronary bypass graft; Z87.891 Personal history of nicotine dependence

== ENCOUNTER → 2020-08-20 | Outpatient (CLI) | payer OTHER | LOC: SJCVC 10:13 | PROVIDERS: ATTEND Internal Medicine | DX: R94.31 Abnormal electrocardiogram [ECG] [EKG] (principal); R00.1 Bradycardia, unspecified; I25.10 Atherosclerotic heart disease of native coronary artery without angina pectoris; E78.5 Hyperlipidemia, unspecified; E03.9 Hypothyroidism, unspecified; Z95.1 Presence of aortocoronary bypass graft; Z79.82 Long term (current) use of aspirin; Z79.899 Other long term (current) drug therapy; Z87.891 Personal history of nicotine dependence; Z88.5 Allergy status to narcotic agent; Z88.8 Allergy status to other drugs, medicaments and biological substances ==

== ENCOUNTER → 2021-02-04 | Outpatient (CLI) | payer OTHER | LOC: SJCVC 12:44 | PROVIDERS: ATTEND Internal Medicine | DX: R00.1 Bradycardia, unspecified (principal); I25.10 Atherosclerotic heart disease of native coronary artery without angina pectoris; E78.5 Hyperlipidemia, unspecified; E03.9 Hypothyroidism, unspecified; F41.9 Anxiety disorder, unspecified; F33.9 Major depressive disorder, recurrent, unspecified; N30.20 Other chronic cystitis without hematuria; Z82.49 Family history of ischemic heart disease and other diseases of the circulatory system; Z95.1 Presence of aortocoronary bypass graft; Z88.5 Allergy status to narcotic agent; Z88.8 Allergy status to other drugs, medicaments and biological substances; Z79.899 Other long term (current) drug therapy; Z87.891 Personal history of nicotine dependence ==